=== PATIENT | female | born 1980 | race Two or more races ===

== ENCOUNTER 2024-07-04 00:45 | Emergency (ER) | payer MEDICAID ==
[~2024-07-04] VITALS: Ht 157.5 cm; Wt 59.0 kg
[2024-07-04 05:07] VITALS: BP 115/75; TEMP 98.3; O2SAT 98
== END 2024-07-04 05:08 | disposition home or self-care (01) ==
LOC: ER 00:59
DX: F10.129 Alcohol abuse with intoxication, unspecified (principal); Y90.9 Presence of alcohol in blood, level not specified
CPT/HCPCS: 82962-TC

== ENCOUNTER 2024-10-13 19:01 | Emergency (ER) | payer MEDICAID, OTHER ==
[~2024-10-13] VITALS: Ht 152.4 cm; Wt 59.0 kg
[2024-10-13 20:12] VITALS: BP 140/80; TEMP 98; O2SAT 99
== END 2024-10-13 20:13 | disposition home or self-care (01) ==
LOC: ER 19:10
DX: F10.129 Alcohol abuse with intoxication, unspecified (principal); Z59.00 Homelessness unspecified; Y90.9 Presence of alcohol in blood, level not specified
CPT/HCPCS: 71045-TC; 98960

== ENCOUNTER 2024-12-24 15:24 | Emergency (ER) | payer MEDICAID, OTHER ==
[~2024-12-24] VITALS: Ht 154.9 cm; Wt 61.9 kg
[2024-12-24] MEDS ORDERED: KETOROLAC TROMETHAMINE 15 MG/ML VIAL ONE (16:27)
[2024-12-24] MEDS: KETOROLAC TROMETHAMINE 15 MG/ML VIAL IV ONE (16:50)
[2024-12-24 16:56] VITALS: BP 110/75; TEMP 98; O2SAT 96
== END 2024-12-24 16:57 | disposition left against medical advice (07) ==
LOC: ER 15:26 → EDBD 15:26 → ER 16:57
DX: S42.215A Unspecified nondisplaced fracture of surgical neck of left humerus, initial encounter for closed fracture (principal); R42 Dizziness and giddiness; W18.39XA Other fall on same level, initial encounter; Y93.89 Activity, other specified; Y92.89 Other specified places as the place of occurrence of the external cause; Y99.8 Other external cause status
CPT/HCPCS: 99285; 96374; 70450; 73030; 84703; J1885

== ENCOUNTER 2025-04-12 11:44 | Emergency (ER) | payer OTHER ==
[~2025-04-12] VITALS: Ht 152.4 cm; Wt 65.5 kg
[2025-04-12] MEDS: LEVETIRACETAM (500MG) 1,000 MG in IV NS 0.9% 90 ML IV SCH (12:00)
[2025-04-12] MEDS: IV NS 0.9% 1,000 ML BAG IV ONE ×2 (12:00→13:00)
[2025-04-12 12:19] LABS: PLATELET COUNT (AUTO) 269 K/uL (150-450); RED BLOOD CELL COUNT(AUTO) 3.58 MIL/uL (4.0-5.2); RED CELL DISTRIBUTION WIDTH 13.0 % (11.5-15.0); WHITE BLOOD COUNT (AUTO) 3.1 K/uL (4.3-11.0)
[2025-04-12 12:31] LABS: CALCIUM, SERUM 7.9 mg/dL (8.5-10.1); CREATININE 0.9 mg/dL (0.6-1.3); SODIUM SERUM 141.0 mmol/L (136-145); UREA NITROGEN, BLOOD 12.0 mg/dL (7-18)
[2025-04-12 12:38] LABS: ALCOHOL, BLOOD 398.0 mg/dL (0-10); ASPARTATE AMINOTRANSFERASE 44.0 U/L (15-37); TOTAL PROTEIN, SERUM 7.8 g/dL (6.4-8.2)
[2025-04-12 12:40] LABS: LACTIC ACID 1.1 mmol/L (0.4-2.0)
[2025-04-12 12:57] LABS: INR 1.0 (0.91-1.10)
[2025-04-12 16:50] VITALS: BP 99/79; TEMP 97.9; O2SAT 100
[2025-04-12 17:44] LABS: AMPHETAMINE, URINE NEGATIVE (NEGATIVE); BARBITURATE, URINE NEGATIVE (NEGATIVE); BENZODIAZEPINE, URINE NEGATIVE (NEGATIVE); CANNABINOID, URINE NEGATIVE (NEGATIVE); COCCAINE, URINE NEGATIVE (NEGATIVE); OPIATE, URINE NEGATIVE (NEGATIVE)
[2025-04-12 17:48] LABS: APPEARANCE,URINE CLEAR (CLEAR); BLOOD, URINE NEGATIVE Ery/uL (NEGATIVE); LEUKOCYTE ESTERASE ,URINE NEGATIVE (NEGATIVE); NITRITE, URINE NEGATIVE (NEGATIVE); UGLUCOSE NEGATIVE (NEGATIVE)
== END 2025-04-12 16:27 | disposition left against medical advice (07) ==
LOC: ER 11:54
DX: S42.202A Unspecified fracture of upper end of left humerus, initial encounter for closed fracture (principal); F10.129 Alcohol abuse with intoxication, unspecified; E86.0 Dehydration; G40.909 Epilepsy, unspecified, not intractable, without status epilepticus; F41.9 Anxiety disorder, unspecified; F32.A Depression, unspecified; R10.20 Pelvic and perineal pain unspecified side; Z59.00 Homelessness unspecified; X58.XXXA Exposure to other specified factors, initial encounter; Y93.89 Activity, other specified; Y92.89 Other specified places as the place of occurrence of the external cause; Y99.8 Other external cause status; Y90.9 Presence of alcohol in blood, level not specified
CPT/HCPCS: 99285; 96365; 96361; 93005; 71045; 70450; 84145; 85025; 80048; 87040 ×2; 87086; 83605; 80076; 81003; 36415; 85730; 84702; 80320; 80307; J7030; G0480; J1953